=== PATIENT | female | born 1960 | race Caucasian/White ===

== ENCOUNTER → 2017-08-14 | Outpatient (CLI) | payer OTHER ==
[~2017-08-14] MED LIST: CIPROFLOXACIN250 M2; FLAGYL500 MG PO; FLEXERIL PO; NAPROSYN500 MG PO; NITROFURANTOIN100 MG PO; NORCO 5-325 TA1 EACH PO; PERCOCET 5-3251 EACH PO; SYNTHROID100 MCG
== END ==
LOC: RAD 01:07
DX: Z12.31 Encounter for screening mammogram for malignant neoplasm of breast (principal)

== ENCOUNTER → 2019-06-06 | Outpatient (CLI) | payer OTHER | LOC: RAD 01:20 | DX: Z12.31 Encounter for screening mammogram for malignant neoplasm of breast (principal) ==